=== PATIENT | female | born 1975 | race Caucasian/White ===

== ENCOUNTER 2019-08-14 08:21 | Day surgery (SDC) | payer OTHER ==
--- NOTE | 2019-08-10 11:32 | HP ---
Admitting History and Physical - Primary Care Physician PCP: Jenna Zambrano - Admission Chief Complaint: Rigth breast radial scar and atypia History of Present Illness: 44 year old premenapausal female with strong family H/O breast,ovarian and pancreatic cancer some of which were BRCA+.The patient tested negative for BRCA gene.05/2019 mammogram showed right breast assymetry and dense breast tisuue.US showed 1.1cm irregular focus with shadowing at 6:00 5cm fn correlating with mammogram findings. US core biopsy revealed benign changes but was felt to be discordinant.Slide review showed radial scar and ADH. History Source: Patient Limitations to Obtaining History: No Limitations - Past Medical History Psych: Yes: Depression - Smoking History Smoking history: Never smoked Have you smoked in the past 12 months: No - Alcohol/Substance Use Hx Alcohol Use: No Home Medications - Allergies Allergies/Adverse Reactions: Allergies Allergy/AdvReac Type Severity Reaction Status Date / Time No Known Allergies Allergy Verified 08/10/19 11:32 - Home Medications Home Medications (free text): latuda,setraline,clozapine Family Medical History Family Hx Cancer: Grandmother (paternal) (prostrate ca ), Father (pancreatic ca BRCA+), Sister (breast ca BRCA+) Other Family History: pat aunt breast ca. mat GM ovarian ca. mother negative panel Physical Examination Constitutional: Yes: No Distress Breast(s): Yes: Other (diffusely dense no palpable masses or adenopathy bilaterally post bx changes right breast) Problem List - Problems (1) Breast ductal hyperplasia, atypical Code(s): N60.99 - UNSPECIFIED BENIGN MAMMARY DYSPLASIA OF UNSPECIFIED BREAST Assessment/Plan Right breast wide excision with mammogram needle localization
[2019-08-10 13:39] VITALS: BMI 29.6
[2019-08-14] MEDS ORDERED: KETOROLAC TROMETHAMINE 30 MG/1 ML VIAL IVPUSH PRN (12:37)
[2019-08-14] MEDS ORDERED: ONDANSETRON 4 MG/2 ML VIAL IVPUSH PRN ×2 (12:37→13:50)
[2019-08-14] MEDS ORDERED: GUM MASTIC/STORAX/MSAL/ALCOHOL 1 DRP DROPSBTL MC ONE (12:41)
[2019-08-14] MEDS ORDERED: LIDOCAINE HCL 1%, 10 MG/ML (20ML VIAL) ONE (12:41)
[2019-08-14] MEDS ORDERED: BUPIVACAINE HCL/PF 2.5 MG/ML - 30 ML VIAL IJ ONE (12:41)
[2019-08-14] MEDS ORDERED: DEXTROSE 5%-0.45% SALINE 1,000 ML IV SCH (12:45)
[2019-08-14] MEDS ORDERED: PROPOFOL 20 ML ONE ×2 (12:50)
[2019-08-14] MEDS ORDERED: MIDAZOLAM HCL 2 MG/2 ML SINGLE DOSE VIAL ONE (12:50)
[2019-08-14] MEDS ORDERED: SUCCINYLCHOLINE CHLORIDE 200 MG/10 ML SYRINGE ONE (12:50)
[2019-08-14] MEDS ORDERED: DEXAMETHASONE SOD PHOSPHATE 4 MG/1 ML VIAL ONE (13:08)
[2019-08-14] MEDS ORDERED: PROMETHAZINE HCL 25 MG/1 ML VIAL IVPUSH PRN (13:50)
[2019-08-14] MEDS ORDERED: oxyCODONE HCL 5 MG TABLET PO PRN ×2 (13:50)
[2019-08-14 14:02] VITALS: TEMP 98.2
[2019-08-14 14:47] VITALS: BP 109/60; PULSE 86
--- NOTE | 2019-08-14 17:10 | OP ---
DATE OF OPERATION: 08/14/2019 PREOPERATIVE DIAGNOSIS: Right breast discordant lesion. POSTOPERATIVE DIAGNOSIS: Right breast discordant lesion. PROCEDURE: Right mammographically localized breast biopsy. ANESTHESIA: IV sedation with local. ATTENDING: Kateryna Zambrano MD GENETICS NURSE: TAE Bustamante ESTIMATED BLOOD LOSS: Minimal. COMPLICATIONS: None. OPERATIVE REPORT: Patient was made aware of the risks and benefits of the procedure and consented. She was placed in a supine position after going to radiology where a needle and wire were placed next to the indexed lesion. The operative site was then prepped and draped in the usual sterile fashion, 1% lidocaine mixed in a 1:1 ratio with 0.5% bupivacaine was used for local anesthesia. Curvilinear periareolar incision was made next using electrocautery. Thick skin flaps were made. The needle was withdrawn through the puncture site and a wire through the wound. Tissues around the wire were then sharply excised and submitted with a short suture superior, long suture lateral. Specimen radiograph confirmed the presence of the indexed lesion. Specimen was then submitted for permanent sectioning. The wound was copiously irrigated with normal saline. Hemostasis maintained by electrocautery. The wound was then closed with deep dermal 3-0 Vicryl followed by a running subcuticular 4-0 Monocryl. Steri-Strips, sterile dressing, and a compression bra were then applied, and the patient, having tolerated the procedure well, was transferred to the recovery room in excellent condition. KATERYNA ZAMBRANO M.D. [id number]
--- NOTE | 2019-08-19 11:54 | PATH ---
Surgical Pathology Report Patient Name: BERNADETTE VALADEZ [facility]. Rec. #: [id number] /Age/Gender: 1975 (Age: 44) / F Account: [id number] Location: [facility] AMBULATORY Taken: 08/14/2019 Received: 08/14/2019 Reported: 08/19/2019 Physicians: Jenna Zambrano M.D. Specimen(s) Received A: RIGHT BREAST WIDE ESCISION B: RIGHT BREAST LATERAL MARGIN Clinical History Right breast wide excision Final Diagnosis A. BREAST, RIGHT, WIDE EXCISION: RADIAL SCAR WITH FOCAL ATYPICAL DUCTAL HYPERPLASIA (ADH), FLAT EPITHELIAL ATYPIA (FEA), USUAL DUCTAL HYPERPLASIA (UDH), CYSTIC APOCRINE METAPLASIA AND ASSOCIATED CALCIFICATIONS. The). Note: Myoepithelial immunohistochemical markers (SMM-HC & p63, performed on block A2 at [facility]) demonstrate the presence of myoepithelial cells in the radial scar. This finding supports the diagnosis. B. BREAST, RIGHT, LATERAL MARGIN, EXCISION: BENIGN BREAST TISSUE SHOWING USUAL DUCTAL HYPERPLASIA (UDH), STROMAL FIBROSIS, FOCAL FEATURES OF RADIAL SCAR AND ASSOCIATED CALCIFICATIONS. Electronically Signed Tayla Montes M.D. Gross Description A. Received in formalin labeled "right breast wide excision," is a 2.4 x 1.8 x 1.4 cm irregular portion of fibroadipose tissue with a needle localization wire present. There is a short suture marking the superior aspect and a long suture marking the lateral aspect of the specimen, per the surgeon. There is no skin present. The specimen is inked as follows: Superior and lateral blue; inferior green; medial yellow; anterior red; deep black. The specimen is serially sectioned from lateral to medial. Sectioning reveals a 0.6 x 0.5 x 0.5 cm fibrous to firm mass abutting the lateral and inferior margins. The mass is 0.1 cm from the anterior margin and 0.1 cm from the deep margin. The remaining breast parenchyma displays white fibrous tissue. The specimen is entirely and sequentially submitted in 6 cassettes with the lateral margin in cassette 1, the medial margin in cassette 6 and the mass in cassettes 1-3. Time to formalin fixation: Not given Total formalin fixation time: Approximately 6 hours B. Received in formalin labeled "right breast lateral margin," is a 1.9 x 1.4 x 0.6 cm portion of fibroadipose tissue with a suture marking the new margin, per the surgeon. The new margin is inked black and the specimen is serially sectioned. The specimen is entirely submitted in 2 cassettes. 08/14/2019 [facility]08/14/2019
== END 2019-08-14 14:45 | disposition home or self-care (01) ==
LOC: FASU 08:21
PROVIDERS: ATTEND Surgery Surgical Oncology
PROC: 0HBT0ZX Excision of Right Breast, Open Approach, Diagnostic (ICD-10-PCS; principal; 2019-08-14 13:17)
DX: N60.81 Other benign mammary dysplasias of right breast (principal); N60.11 Diffuse cystic mastopathy of right breast; N60.91 Unspecified benign mammary dysplasia of right breast; N64.89 Other specified disorders of breast
CPT/HCPCS: 19281; 84703; 88307-TC; 88341-TC; 88342-TC